=== PATIENT | male | born 1990 | race Caucasian/White ===

== ENCOUNTER 2023-04-09 02:50 | Emergency (ER) | payer SELFPAY ==
[2023-04-09] MEDS ORDERED: fentaNYL 100 MCG/2 ML SDV IVPUSH ONE (03:06)
[2023-04-09] MEDS ORDERED: Ketorolac 30 MG/ML SDV IVPUSH ONE (03:07)
[2023-04-09 03:15] LABS: BASOPHILS PERCENT AUTO 0.3 % (0.0-1.0); EOSINOPHILS PERCENT AUTO 6.7 % (1.0-3.0); HEMATOCRIT 41.6 % (40.0-54.0); HEMOGLOBIN 13.9 g/dL (14.0-18.0); MEAN CORPUSCULAR HEMOGLOBIN 29.4 pg (27.0-34.0); MEAN CORPUSCULAR HGB CONC 33.4 g/dL (33.0-35.0); MEAN CORPUSCULAR VOLUME 88.1 fL (80-100); MONOCYTES PERCENT AUTO 11.6 % (2-8); NEUTROPHILS PERCENT AUTO 55.4 % (42.2-75.2); PLATELET COUNT,PLT 180 10^3/uL (150-450); RED BLOOD CELL COUNT 4.72 10^6/uL (4.6-6.2)
[2023-04-09 03:30] LABS: A/G RATIO 1.5; ALANINE AMINOTRANSFERASE,ALT 40 U/L (16-63); ALBUMIN 3.9 g/dL (3.4-5.0); ALKALINE PHOSPHATASE 70 U/L (46-116); ANION GAP 11.8 mEq/L (7-13); ASPARTATE AMNIOTRANSFERASE,AST 27 U/L (15-37); BILIRUBIN TOTAL 0.5 mg/dL (0.2-1.0); BLOOD UREA NITROGEN,BUN 22 mg/dL (7-18); BUN/CREATININE RATIO 25.9 (No establ ref range); CALCIUM 8.6 mg/dL (8.5-10.1); CARBON DIOXIDE,CO2 27 mmol/L (21-32); CHLORIDE,CL 103 mmol/L (98-107); CREATININE 0.85 mg/dL (0.70-1.30); GLUCOSE RANDOM 99 mg/dL (70-99); POTASSIUM,K 3.8 mmol/L (3.5-5.1); PROTEIN TOTAL,TP 6.5 g/dL (6.4-8.2); SODIUM,NA 138 mmol/L (136-145)
[2023-04-09 03:31] LABS: ESTIMATED GFR 120 mL/min (>=60)
[2023-04-09 03:41] LABS: BASE EXCESS VENOUS -0.2 mmol/l ((-2)-(+3)); BICARBONATE,VENOUS 26 mmol/l (19-25); O2 DELIVERY DEVICE NON REBR MASK; PCO2 VENOUS 48 mmHg (41-51); PH,VENOUS 7.35 (7.31-7.41); PO2 VENOUS 56 mmHg (35-42)
== END 2023-04-09 04:12 | disposition home or self-care (01) ==
LOC: DL.ED 02:50
DX: T59.811A Toxic effect of smoke, accidental (unintentional), initial encounter (principal); X01 Exposure to uncontrolled fire, not in building or structure
CPT/HCPCS: 36415; 80053; 82803; 83605; 85025; 96374; 96375; 99283; 99284-25; J1885; J3010

== ENCOUNTER 2023-08-26 21:35 | Emergency (ER) | payer SELFPAY ==
[2023-08-26] MEDS ORDERED: Bacitracin Oint 1 GM U/D Packet TOP ONE (21:41)
[2023-08-26] MEDS ORDERED: Lidocaine 2% with EPINEPHrine 1:200,000 20 ML SDV INJECT ONE (21:41)
[2023-08-26] MEDS ORDERED: Diphtheria,Pertussis(Acell),Tetanus Vaccine 0.5 ML Syringe IM ONE (21:51)
== END 2023-08-26 22:30 | disposition home or self-care (01) ==
LOC: DL.ED 21:35
DX: S51.811A Laceration without foreign body of right forearm, initial encounter (principal); Z23 Encounter for immunization; X99.9XXA Assault by unspecified sharp object, initial encounter
CPT/HCPCS: 12001; 90471; 90715; 99282; 99283-25; A9270-GY; J3490

== ENCOUNTER 2024-01-28 11:57 | Emergency (ER) | payer SELFPAY | END 2024-01-28 17:12 | LOC: DL.ED 11:57 | DX: Z53.21 Procedure and treatment not carried out due to patient leaving prior to being seen by health care provider (principal) ==

== ENCOUNTER 2024-08-12 15:43 | Emergency (ER) | payer MEDICAID ==
[2024-08-12] MEDS: Lidocaine 2% Viscous Solution 15 ML UD PO ONE (16:21)
== END 2024-08-12 16:36 | disposition home or self-care (01) ==
LOC: DL.ED 15:43
DX: G89.29 Other chronic pain (principal); R07.0 Pain in throat; Z76.5 Malingerer [conscious simulation]
CPT/HCPCS: 99282; 99283; A9270-GY